=== PATIENT | male | born 1960 | race Caucasian/White ===

== ENCOUNTER 2017-07-02 12:06 | Inpatient (IN) | payer OTHER ==
[~2017-07-02] VITALS: Ht 180.3 cm; Wt 104.0 kg
[~2017-07-02 12:06] MED LIST: ACULAR LS5 ML OU; BIO-CEF500 M1 PO; COLACE100 MG PO; COZAAR100 MG PO; LEVAQUIN750 MG PO; NORCO1 TA2 PO; PRED FORTE1 ML OS; TORADOL10 MG PO; TRAMADOL HCL50 MG PO; VIGAMOX3 ML OU; XARELTO15 M1 PO
[2017-07-02 12:38] LABS: BASOPHIL % 0.7 % (0-2); PLATELET COUNT 262 x10^3mcL (130-400); RED CELL DISTRIBUTION WIDTH 13.4 % (11.5-14.5)
[2017-07-02 12:58] LABS: CALCIUM 9.1 mg/dL (8.5-10.1); CARBON DIOXIDE 27.3 mmol/L (21-32); CHLORIDE SERUM 99 mmol/L (98-107); CREATININE SERUM 0.8 mg/dL (0.7-1.3); GFR1 > 60 mL/min; GLUCOSE SERUM 97 mg/dL (74-106); POTASSIUM SERUM 3.9 mmol/L (3.5-5.1); SODIUM SERUM 137 mmol/L (136-145)
[2017-07-02 13:03] LABS: ALBUMIN 4.1 g/dL (3.4-5.0); ALKALINE PHOSPHATASE 100 U/L (46-116); ALT/SGPT 23 U/L (16-63); AST/SGOT 20 U/L (15-37); BILIRUBIN TOTAL 0.7 mg/dL (0.20-1.00); TOTAL PROTEIN, SERUM 7.7 g/dL (6.4-8.2)
[2017-07-02 13:05] LABS: AMYLASE 47 U/L (25-115); CHOLESTEROL 187 mg/dL (<200); HDL CHOLESTEROL 59 mg/dL (40-60); LIPASE 111 IU/L (73-393)
[2017-07-02 13:53] LABS: microscopic required? NO
[2017-07-02 14:03] LABS: UA SPECIFIC GRAVITY <=1.005 (1.005-1.035); urine erythrocyte NEGATIVE (NEGATIVE)
[2017-07-02 14:33] LABS: AMPHETAMINE QUAL UR NONE DETECTED (NEG <=1000)
[2017-07-02 16:11] LABS: MAGNESIUM 2.2 mg/dL (1.8-2.4); PHOSPHOROUS 3.1 mg/dL (2.5-4.9)
[2017-07-02 16:12] LABS: T3 TOTAL 1.28 ng/mL
[2017-07-02 16:18] LABS: FREE T4 1.11 ng/dL (0.76-1.46); T4(THYROXINE) 8.2 ug/dL (4.7-13.3)
[2017-07-02 17:23] VITALS: BP 165/84
[2017-07-02 21:09] VITALS: BP 140/80
[2017-07-03 05:57] VITALS: BP 163/92
[2017-07-03 06:16] LABS: PLATELET COUNT 261 x10^3mcL (130-400); RED CELL DISTRIBUTION WIDTH 13.4 % (11.5-14.5)
[2017-07-03 06:39] LABS: BASOPHIL % 0 % (0-2)
[2017-07-03 09:16] LABS: CALCIUM 9.4 mg/dL (8.5-10.1); CARBON DIOXIDE 23.9 mmol/L (21-32); CHLORIDE SERUM 103 mmol/L (98-107); CREATININE SERUM 0.9 mg/dL (0.7-1.3); GFR1 > 60 mL/min; GLUCOSE SERUM 138 mg/dL (74-106); MAGNESIUM 2.3 mg/dL (1.8-2.4); PHOSPHOROUS 4.2 mg/dL (2.5-4.9); POTASSIUM SERUM 3.9 mmol/L (3.5-5.1); SODIUM SERUM 140 mmol/L (136-145)
[2017-07-03 09:49] VITALS: BP 151/92
[2017-07-03 13:26] VITALS: BP 142/76
[2017-07-03 17:17] VITALS: BP 139/80
[2017-07-03 22:23] VITALS: BP 131/70
[2017-07-04 05:59] VITALS: BP 122/73
[2017-07-04 06:15] LABS: PLATELET COUNT 250 x10^3mcL (130-400)
[2017-07-04 06:55] LABS: BASOPHIL % 0 % (0-2)
[2017-07-04 07:58] VITALS: BP 120/83
[2017-07-04 09:56] VITALS: Ht 180.3 cm; Wt 104.0 kg
[2017-07-04 10:17] VITALS: BP 120/83
[2017-07-04] MEDS ORDERED: NOR5 PO (10:23)
[2017-07-04] MEDS ORDERED: VENTOLIN H0.09 MG/A1 INH (10:25)
[2017-07-04] MEDS ORDERED: QVAR8.7 GM INH (10:25)
[2017-07-04] MEDS ORDERED: LEV500 PO (10:26)
[2017-07-04] MEDS ORDERED: PREDNISONE20 MG (10:27)
[2017-07-04 13:27] VITALS: BP 150/85
== END 2017-07-04 13:15 | disposition home or self-care (01) | DRG 140 ==
LOC: ED 12:06 → DU 15:37
PROVIDERS: Emergency Medicine; Family Medicine
DX: J44.1 Chronic obstructive pulmonary disease with (acute) exacerbation (principal); I10 Essential (primary) hypertension; M94.0 Chondrocostal junction syndrome [Tietze]; F17.200 Nicotine dependence, unspecified, uncomplicated; E78.5 Hyperlipidemia, unspecified; R91.1 Solitary pulmonary nodule; J98.01 Acute bronchospasm; G89.29 Other chronic pain; M54.5 Low back pain; Z90.89 Acquired absence of other organs; Z82.3 Family history of stroke; Z83.3 Family history of diabetes mellitus; Z82.49 Family history of ischemic heart disease and other diseases of the circulatory system; Z80.3 Family history of malignant neoplasm of breast; Z71.6 Tobacco abuse counseling
CPT/HCPCS: 36600; 83880; 84439; 85378; 94150; 99406; J1956; J2920; J2930; J7030; J7613; J7620; J7626; J7644; Q0092; Q9967